=== PATIENT | male | born 1985 | race Caucasian/White ===

== ENCOUNTER 2017-05-13 09:55 | Emergency (ER) | payer OTHER ==
[~2017-05-13] VITALS: Wt 75.0 kg
[2017-05-13] MEDS ORDERED: LIDOCAINE 1% (MDV) 20 ML INJ SC ONE (11:00)
[2017-05-13] MEDS ORDERED: DIPHTH/TET/ACEL PERTUSS (ADULT) 0.5 ML VIAL IM* ONE (11:00)
--- NOTE | 2017-05-13 11:15 | ERD ---
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 CONTROLLED BLEED HPI 31-year-old male comes in for laceration to the right lower leg after accidentally cutting himself with a metal scraper at work. Laceration occurred approximately 2 hours ago, patient states that there is localized pain that is sharp. He denies any foreign body entrance. Patient does not recall his last tetanus shot. ROS All systems reviewed and are negative except as per history of present illness. PMhx/Soc Medical and Surgical Hx: pt denies Medical Hx, pt denies Surgical Hx Hx Alcohol Use: No Hx Substance Use: No Hx Tobacco Use: No Physical Exam Vitals Vital Signs Date Time Temp Pulse Resp B/P Pulse Ox O2 Delivery O2 Flow Rate FiO2 05/13/17 10:00 98.0 69 20 133/67 99 Physical Exam General: Well-developed, well-nourished. The patient appears in no acute distress. HEENT: Head is normocephalic, atraumatic. No scleral icterus. Neck: Supple. Nontender. Lungs: Clear to auscultation. Normal air movement. Heart: Regular rate and rhythm. S1 and S2 are normal. No murmurs, gallops, or rubs. Abdomen: Nondistended. Extremities: 5 cm linear laceration at the right lower extremity lateral portion. This laceration is approximately 0.5 cm deep, the muscle body is intact. There is no evidence of active bleeding or foreign body. Neurologic: Alert and oriented 3. No focal deficits. Normal speech and gait. Skin: Normal turgor. No rash or lesions. Results 24 hrs Current Medications Medications (Trade) Dose Ordered Sig/Antwon Route PRN Reason Start Time Stop Time Status Last Admin Dose Admin Lidocaine (Xylocaine 1% (Mdv) 20 ml) 20 ml ONCE ONCE SC 05/13/17 11:00 05/13/17 11:01 DC Diphtheria/ Tetanus/Acell Pertussis (Adacel) 0.5 ml ONCE ONCE IM* 05/13/17 11:00 05/13/17 11:01 DC 05/13/17 11:03 Procedures/MDM ED course: Patient's tetanus was updated. Laceration Repair by me: Patient was verbally consented Anesthesia: 1% lidocaine locally Location: Right lower leg Tendon/Joint/Nerves: No injury Foreign body: None detected after copious irrigation and exploration Technique: Simple Interrupted SuturesUsing 4-0 Ethilon 12 Complexity: No subcutaneous sutures/mucosal repair/ edge excision Post Closure Length: 5 cm Patient's bleeding was easily controlled in the department and there is no indication of anemia. No evidence of compartment syndrome, neurologic injury, vascular injury, open joint, tendon laceration, or foreign body. Patient is appropriate for outpatient follow up. 48 hour wound check. Scar minimization instructions given. Departure Diagnosis: Primary Impression: Laceration Condition: Good Patient Instructions: Laceration, All Additional Instructions: WOUND CHECK:CONSULTE A CHAPMAN MDICO EN 2 [place] para zaid CHAPMAN HERIDA. SUTURE REMOVAL:CONSULTE A CHAPMAN MDICO PARA SACAR CHAPMAN PUNTOS-7-10 [place]. SHAYE DE PAZ PA-C May 13, 2017 11:14
== END 2017-05-13 11:33 | disposition home or self-care (01) ==
LOC: FTE 09:55
DX: S81.811A Laceration without foreign body, right lower leg, initial encounter (principal); W26.8XXA Contact with other sharp object(s), not elsewhere classified, initial encounter; Y92.89 Other specified places as the place of occurrence of the external cause; Z23 Encounter for immunization
CPT/HCPCS: 12002; 90471; 90715; Z7502; Z7610